=== PATIENT | male | born 1970 | race Caucasian/White ===

== ENCOUNTER 2021-06-22 08:20 | Emergency (ER) | payer SELFPAY ==
[~2021-06-22] VITALS: Ht 172.7 cm; Wt 71.7 kg
== END 2021-06-22 09:46 | disposition home or self-care (01) ==
LOC: ER 08:20
DX: R56.9 Unspecified convulsions (principal); Z79.899 Other long term (current) drug therapy
CPT/HCPCS: 99284

== ENCOUNTER 2025-09-03 16:03 | Inpatient (IN) | payer MEDICAID ==
[~2025-09-03] VITALS: Ht 177.8 cm; Wt 61.7 kg
[2025-09-03] MEDS ORDERED: Midazolam HCL 1 MG/ML 5MLVIAL ONE ×2 (16:17→17:36)
[2025-09-03] MEDS ORDERED: NS 1,000 ML IV SCH (16:20)
[2025-09-03] MEDS ORDERED: Midazolam HCL 1 MG/ML 5MLVIAL IV ONE ×4 (16:20→17:45)
[2025-09-03] MEDS ORDERED: Naloxone HCl 1MG / ML 2ML SYR ONE (16:25)
[2025-09-03] MEDS ORDERED: Naloxone HCl 1MG / ML 2ML SYR IV ONE (16:40)
[2025-09-03 17:02] LABS: BASOPHILS ABSOLUTE AUTO 0.04 K/mm3 (0.00-0.23); BASOPHILS PERCENT AUTO 1 % (0-2); EOSINOPHILS ABSOLUTE AUTO 0.06 K/mm3 (0.00-0.68); EOSINOPHILS PERCENT AUTO 2 % (0-6); Hematocrit 37.0 % (37.0-53.0); Hemoglobin 12.2 g/dL (13.5-17.5); IMMATURE GRAN ABSOLUTE AUTO 0.02 K/mm3 (0.00-0.10); IMMATURE GRAN PERCENT AUTO 1 % (0-1); LYMPHOCYTES ABSOLUTE AUTO 0.35 K/mm3 (0.84-5.20); LYMPHOCYTES PERCENT AUTO 10 % (21-46); MONOCYTES ABSOLUTE AUTO 0.35 K/mm3 (0.16-1.47); MONOCYTES PERCENT AUTO 10 % (4-13); Mean Corpuscular HGB Conc 33.0 g/dL (31.5-36.5); Mean Corpuscular Volume 91 fL (80-100); NEUTROPHILS ABSOLUTE AUTO 2.84 K/mm3 (1.96-9.15); NEUTROPHILS PERCENT AUTO 78 % (41-73); NRBC ABSOLUTE 0.00 K/mm3 (0.00-0.02); NRBC Auto 0.0 /100 WBC (0.0-0.2); RDW Coefficient Variation 20.7 % (11.7-14.2); RDW Standard Deviation 67.6 fL (35.1-46.3)
[2025-09-03 17:21] LABS: Platelet Count 81 K/mm3 (150-400)
[2025-09-03 17:26] LABS: Source, Urine Foley catheter
[2025-09-03 17:31] LABS: Bilirubin, Urine Neg (Neg); Color, Urine Yellow (P-Yellow); Glucose Qualitative, Urine Neg (Neg); Ketones, Urine Neg (Neg); Leukocyte Esterase, Urine Neg (Neg); Protein, Urine 4+ (Neg); Specific Gravity, Urine 1.010 (1.003-1.022); Urobilinogen, Urine NORM (Normal)
[2025-09-03 17:36] LABS: Alanine Aminotransfer (ALT/SGP 58.0 U/L (12-78); Albumin, Blood 3.7 g/dL (3.4-5.0); Albumin/Globulin Ratio 0.9 (0.8-1.8); Anion Gap 6.0 mmol/L (3-11); Aspartate Aminotrans (AST/SGOT 76.0 U/L (12-37); Bilirubin, Total 0.9 mg/dL (0.1-1.0); Blood Urea Nitrogen 13.0 mg/dL (8-24); CO2, Blood 27.0 mmol/L (21-32); Calcium, Blood 9.9 mg/dL (8.5-10.1); Chloride, Blood 106.0 mmol/L (98-108); Creatinine, Blood 0.98 mg/dL (0.60-1.20); Globulin, Blood 3.9 g/dL (2.2-4.0); Glucose, Blood 129.0 mg/dL (70-99); Potassium, Blood 4.2 mmol/L (3.5-5.5); Sodium, Blood 135.0 mmol/L (136-145); Total Protein, Blood 7.6 g/dL (6.4-8.2)
[2025-09-03 17:41] LABS: U Amphetamine Screen Not Detected; U Barbiturate Screen Not Detected; U Benzodiazapine Screen Not Detected; U Buprenorphine Screen Not Detected; U Cannabinoids Screen DETECTED; U Cocaine Screen Not Detected; U Methadone Screen Not Detected; U Methamphetamine Screen Not Detected; U Opiates Screen Not Detected; U Oxycodone Screen Not Detected; U Phencyclidine Screen Not Detected
[2025-09-03 17:45] LABS: White Blood Cells, Urine 0-2 /hpf (0-5)
[2025-09-03 17:53] LABS: Ethanol (Alcohol), Blood, Med <3 mg/dL
[2025-09-03 19:27] LABS: Influenza A, PCR NEGATIVE (NEGATIVE); Influenza B, PCR NEGATIVE (NEGATIVE); Resp Syncytial Virus, PCR NEGATIVE (NEGATIVE); SARS-Cov-2 (COVID-19) PCR, MMC NEGATIVE (NEGATIVE)
[2025-09-03] MEDS ORDERED: LORazepam 2 MG/ML 1ML Injection ONE (20:34)
[2025-09-03] MEDS ORDERED: LORazepam 2 MG/ML 1ML Injection IV PRN ×2 (20:40)
[2025-09-03] MEDS ORDERED: Metoclopramide HCl 5MG / ML 2ML Vial IV PRN (20:40)
[2025-09-03] MEDS ORDERED: Labetalol HCL 5 MG/ML 4ML Injection (Single Dose) IV PRN (20:40)
[2025-09-03] MEDS ORDERED: FLU VACC TS2025-26(6MOS UP)/PF 45 MCG/0.5 ML SYRINGE IM SCH (20:40)
[2025-09-03] MEDS ORDERED: Ondansetron HCl 2 MG / ML 2ML Vial IV PRN (20:40)
[2025-09-03] MEDS ORDERED: D5W-1/2NS KCl 20mEq 1,000 ML IV SCH (20:40)
[2025-09-03] MEDS ORDERED: LORazepam 2 MG/ML 1ML Injection IV ONE (21:00)
[2025-09-03 21:18] LABS: Magnesium, Blood 1.7 mg/dL (1.6-2.4); Thyroid Stimulating Hormone 4.270 uIU/mL (0.360-4.800)
[2025-09-03 22:30] VITALS: BP 118/78
[2025-09-03 23:30] VITALS: BP 152/99
[2025-09-03 23:45] VITALS: BP 154/90
[2025-09-04] VITALS (61 sets, daily range): BP systolic 82–168; BP diastolic 51–104
[2025-09-04 04:22] LABS: BASOPHILS ABSOLUTE AUTO 0.04 K/mm3 (0.00-0.23); BASOPHILS PERCENT AUTO 1 % (0-2); EOSINOPHILS ABSOLUTE AUTO 0.03 K/mm3 (0.00-0.68); EOSINOPHILS PERCENT AUTO 1 % (0-6); Hematocrit 34.1 % (37.0-53.0); Hemoglobin 11.0 g/dL (13.5-17.5); IMMATURE GRAN ABSOLUTE AUTO 0.03 K/mm3 (0.00-0.10); IMMATURE GRAN PERCENT AUTO 1 % (0-1); LYMPHOCYTES ABSOLUTE AUTO 0.59 K/mm3 (0.84-5.20); LYMPHOCYTES PERCENT AUTO 10 % (21-46); MONOCYTES ABSOLUTE AUTO 1.23 K/mm3 (0.16-1.47); MONOCYTES PERCENT AUTO 20 % (4-13); Mean Corpuscular HGB Conc 32.3 g/dL (31.5-36.5); Mean Corpuscular Volume 91 fL (80-100); NEUTROPHILS ABSOLUTE AUTO 4.26 K/mm3 (1.96-9.15); NEUTROPHILS PERCENT AUTO 69 % (41-73); NRBC ABSOLUTE 0.00 K/mm3 (0.00-0.02); NRBC Auto 0.0 /100 WBC (0.0-0.2); Platelet Count 79 K/mm3 (150-400); RDW Coefficient Variation 20.2 % (11.7-14.2); RDW Standard Deviation 67.3 fL (35.1-46.3)
[2025-09-04 04:45] LABS: Alanine Aminotransfer (ALT/SGP 47.0 U/L (12-78); Albumin, Blood 3.3 g/dL (3.4-5.0); Albumin/Globulin Ratio 1.0 (0.8-1.8); Anion Gap 7.0 mmol/L (3-11); Aspartate Aminotrans (AST/SGOT 59.0 U/L (12-37); Bilirubin, Total 0.9 mg/dL (0.1-1.0); Blood Urea Nitrogen 13.0 mg/dL (8-24); CO2, Blood 28.0 mmol/L (21-32); Calcium, Blood 8.7 mg/dL (8.5-10.1); Chloride, Blood 107.0 mmol/L (98-108); Creatinine, Blood 0.94 mg/dL (0.60-1.20); Globulin, Blood 3.4 g/dL (2.2-4.0); Glucose, Blood 135.0 mg/dL (70-99); Magnesium, Blood 1.6 mg/dL (1.6-2.4); Potassium, Blood 3.9 mmol/L (3.5-5.5); Sodium, Blood 138.0 mmol/L (136-145); Total Protein, Blood 6.7 g/dL (6.4-8.2)
--- NOTE | 2025-09-04 06:17 | NUR ---
SHIFT SUMMARY RECEIVED PT FROM ED LAST NIGHT @ 225, EXTREMELY AGITATED AND CONFUSED WITH CIWA 25 ON ARRIVAL AFTER TRANSFERRING TO ICU BED. MULT DOSES OF ATIVAN NEEDED TO LOWER CIWA, DR CHRISTOPHER UPDATED WITH PT STATUS, PRECEDEX GTT ORDER RECEIVED AND INITIATED. TITRATING PER PROTOCOL, CURRENTLY AT 0.4 WITH MIN SYMPTOMS NOTED. FEBRILE AT 100.0 EARLY IN SHIFT, DOWN TO 98.9 BY THIS AM. OTHER VS REMAINED STABLE T/O SHIFT. WILL UPDATE DAY RN WITH ANY OUTSTANDING ISSUES AND PROBLEMS TO DATE.
[2025-09-04] MEDS ORDERED: ALLO100 PO (10:16)
[2025-09-04] MEDS ORDERED: FOLI1 PO (10:16)
[2025-09-04] MEDS ORDERED: PANT40 PO (10:16)
[2025-09-04] MEDS ORDERED: MULVITA PO (10:17)
[2025-09-04] MEDS ORDERED: Naltrexone HCl50 MG PO (10:17)
[2025-09-04] MEDS ORDERED: VITAMIN D5000 UNIT PO (10:18)
[2025-09-04] MEDS ORDERED: ELEPSIA XR1500 MG PO (10:19)
[2025-09-04] MEDS ORDERED: SPIR50 PO (10:20)
[2025-09-04] MEDS ORDERED: TAMSULOSIN HCL0.4 MG PO (10:21)
--- NOTE | 2025-09-04 13:26 | NUR ---
ASSUMPTION OF CARE ASSUMED CARE OF PT APPROX 0700. PT IS RESTING IN BED, PT IS AROUSABLE TO VOICE AND TOUCH, NOT ORIENTED TO DATE, STATES "IT'S SUNDAY" BUT CANNOT IDENTIFY MONTH OR YEAR. WHEN AWAKENED WILL LIFT ARMS AND LEGS AND PULL AT LINES, ABLE TO REDIRECT. PT PRODUCTION TECHNICIAN IS AT BEDSIDE. PRECEDEX INFUSING PER MAR -SEE FLOWSHEET. REMAINS IN SINUS RHYTHM ON MONITOR, BP STABLE WITH MAP >65, SP02 REMAINS >90% ON 2L NC. FANG IN PLACE AND DRAINING TO GRAVITY. NO UNMET NEEDS AT THIS TIME, CALL LIGHT WITHIN REACH.
[2025-09-04 13:36] LABS: Prothrombin Time Results 12.7 Sec (9.7-11.5)
[2025-09-04 14:59] LABS: Ferritin, Serum 34.0 ng/mL (26-388); Total Iron Binding Capacity 366.0 ug/dL (250-450)
--- NOTE | 2025-09-04 18:43 | NUR ---
SHIFT SUMMARY PT REMAINS DROWSY AND ORIENTED TO SELF AND PLACE, NOT ORIENTED TO TIME. CIWA THROUGHOUT THE SHIFT RANGED 13-19. PRECEDEX INFUSING PER MAR -SEE FLOWSHEET. PT RESTING DURING MOST OF SHIFT, WHEN STIMULATED BECOMES AGITATED, LIFTING ARMS AND LEGS, PULLING AT LINES. BP REMAINS STABLE WITH MAP >65, RHYTHM IS SINUS WITH RATE IN THE 70S-80S AND SATS REMAIN >90% ON 2L NC. CALL LIGHT WITHIN REACH.
[2025-09-05] VITALS (92 sets, daily range): BP systolic 72–178; BP diastolic 40–105
[2025-09-05 04:28] LABS: BASOPHILS ABSOLUTE AUTO 0.06 K/mm3 (0.00-0.23); BASOPHILS PERCENT AUTO 1 % (0-2); EOSINOPHILS ABSOLUTE AUTO 0.02 K/mm3 (0.00-0.68); EOSINOPHILS PERCENT AUTO 0 % (0-6); Hematocrit 31.9 % (37.0-53.0); Hemoglobin 10.5 g/dL (13.5-17.5); IMMATURE GRAN ABSOLUTE AUTO 0.06 K/mm3 (0.00-0.10); IMMATURE GRAN PERCENT AUTO 1 % (0-1); LYMPHOCYTES ABSOLUTE AUTO 1.02 K/mm3 (0.84-5.20); LYMPHOCYTES PERCENT AUTO 8 % (21-46); MONOCYTES ABSOLUTE AUTO 1.72 K/mm3 (0.16-1.47); MONOCYTES PERCENT AUTO 13 % (4-13); Mean Corpuscular HGB Conc 32.9 g/dL (31.5-36.5); Mean Corpuscular Volume 91 fL (80-100); NEUTROPHILS ABSOLUTE AUTO 10.05 K/mm3 (1.96-9.15); NEUTROPHILS PERCENT AUTO 78 % (41-73); NRBC ABSOLUTE 0.00 K/mm3 (0.00-0.02); NRBC Auto 0.0 /100 WBC (0.0-0.2); Platelet Count 65 K/mm3 (150-400); RDW Coefficient Variation 20.3 % (11.7-14.2); RDW Standard Deviation 67.3 fL (35.1-46.3)
[2025-09-05 04:52] LABS: Alanine Aminotransfer (ALT/SGP 34.0 U/L (12-78); Albumin, Blood 2.6 g/dL (3.4-5.0); Albumin/Globulin Ratio 0.8 (0.8-1.8); Anion Gap 6.0 mmol/L (3-11); Aspartate Aminotrans (AST/SGOT 39.0 U/L (12-37); Bilirubin, Total 1.0 mg/dL (0.1-1.0); Blood Urea Nitrogen 18.0 mg/dL (8-24); CO2, Blood 24.0 mmol/L (21-32); Calcium, Blood 8.0 mg/dL (8.5-10.1); Chloride, Blood 112.0 mmol/L (98-108); Creatinine, Blood 0.96 mg/dL (0.60-1.20); Globulin, Blood 3.1 g/dL (2.2-4.0); Glucose, Blood 117.0 mg/dL (70-99); Magnesium, Blood 1.3 mg/dL (1.6-2.4); Potassium, Blood 4.1 mmol/L (3.5-5.5); Sodium, Blood 138.0 mmol/L (136-145); Total Protein, Blood 5.7 g/dL (6.4-8.2)
--- NOTE | 2025-09-05 05:12 | NUR ---
DR MAMI GUILLERMO AWARE OF PT AM LABS. ORDER PLACED FOR REPLACEMENT IV MAGNESIUM.
[2025-09-05] MEDS ORDERED: Mag Sulfate 1 GM/D5% 100ML 100 ML IV ONE (05:15)
[2025-09-05] MEDS ORDERED: Pantoprazole Sodium 40 MG Injection IV SCH (06:00)
--- NOTE | 2025-09-05 06:05 | NUR ---
SHIFT SUMMARY PT A&O x2, TO SELF/PLACE. CIWA RANGED FROM 14-26 THROUGHOUT THE NIGHT, MEDICATED PER EMAR c ATIVAN. PT INCREASINGLY AGGITATED WHEN WOKEN, CONSISTENTLY PULLS AT LINES. SITTER INTERMITTENTLY ABLE TO REDIRECT PT. SPO2 >93% ON 2L O2 VIA NC. NSR, HR 70-80s, MAP >65. IV FLUIDS INFUSING PER EMAR. PRECEDEX CURRENTLY INFUSING @ 0.3. TEMPERATURE TRENDING DOWN. FANG DRAINING YELLOW URINE TO GRAVITY. SITTER AT BEDSIDE. WILL REPORT TO DAY RN.
[2025-09-05] MEDS ORDERED: Magnesium Sulf 2 GM/Water 50ML 50 ML IV ONE (07:20)
[2025-09-05] MEDS ORDERED: Multivitamins 1 Tab PO SCH (09:00)
[2025-09-05] MEDS ORDERED: Cholecalciferol 1000 Unit Tablet (=25MCG) PO SCH (09:00)
[2025-09-05] MEDS ORDERED: D5W-1/2NS KCl 20mEq 1,000 ML IV SCH (14:15)
[2025-09-05] MEDS ORDERED: Lactulose 200 GM/300 ML Enema 300ML BTL PR ONE (14:20)
[2025-09-05] MEDS ORDERED: CefTRIAXone Sodium 2,000 MG in NS 100 ML IV SCH (16:00)
--- NOTE | 2025-09-05 19:07 | NUR ---
SHIFT SUMMARY: NEURO: PATIENT CONFUSED THROUGHOUT THE SHIFT. PATIENT ABLE TO RESPOND TO HIS NAME, BUT REPORTED THAT HE WAS IN [place]. COULD NOT REMEMBER CURRENT CITY THIS MORNING OR THE CITY THAT HE CURRENTLY LIVES IN. THE DAY PROGRESSED, PATIENT EXPERIENCED AN IMPROVEMENT IN HIS MENTATION. ABLE TO ASK THIS RN "HOW ARE YOU" AND STATE THAT HE LIVES IN [place]. PATIENT DID NOT FOLLOW DIRECTIONS. DIFFICULT TO REDIRECT THE PATIENT. WITH CARE, PATIENT AGITATED AND PULLING AT LINES. TREMOR NOTED. PATIENT ABLE TO ANSWER SOME OF THE CIWA QUESTIONS (HEADACHE, NAUSEA, ANXIETY). MEDICATED FOR WITHDRAWAL PER PRN ORDERS. MOVEMENT NOTED IN ALL 4 EXTREMITIES. PRECEDEX GTT CONTINUED. CARDIAC: PATIENT HR IN THE 70S THROUGHOUT THE SHIFT. SBP IN THE 90S-120S. BLOOD PRESSURES SOFT AT TIMES. MAPS >65. DR. WALSH AWARE. RESPIRATORY: TITRATED O2 VIA NC TO 2L. SPO2 >98%. PATIENT HAS A PRODUCTIVE COUGH. PATIENT SWALLOS SPUTUM BEFORE IT CAN BE VISUALIZED. NO SHORTNESS OF BREATH OR DIFFICULTY BREATHING NOTED. GI/: LARGE CAST REMOVED FROM BACK OF ROOF OF MOUTH TODAY. DENTURES CLEANED AND SOAKING IN DENTURE CLEANSER. ORAL CARE PROVIDED THROUGHOUT THE SHIFT. IN GENERAL, PATIENT NOT AWAKE ENOUGH TO SAFELY TAKE IN PO INTAKE. ALERT ENOUGH TO SAFELY SWALLOW SOME WATER THIS AFTERNOON. FANG IN PLACE AND DRAINING FREELY. LACTULOSE ENEMA GIVEN TO THE PATIENT. TWO LARGE BOWEL MOVEMENTS POST ADMINISTRATION. PSYCHSOCIAL: PATIENT SLEPT MOST OF THE SHIFT. OCCASIONALLY PULLING AT LINES, MOSTLY WHEN UNCOVERED. PATIENT AGITATED AND FIGHTING CARE. NO VIOLENT ACTIONS TOWARDS STAFF.
--- NOTE | 2025-09-05 20:15 | NUR ---
ASSUMPTION OF CARE: ASSUMED CARE OF PT AT 1900 PT IS DOING ADL'S-ORAL CARE IND AT THE SINK AND PT'S FATHER AT BEDSIDE. PT IS ON RA AND SPO2 >96%. SBP 150'S AND HR IN 70'S.PATENT FANG DRAINING YELLOW URINE TO GRAVITY. LAC AND RAC PATENT. PT REPORTS WANTING TO GO BACK TO BED AND PAIN EVERYWHERE, PAIN MEDICATED PER EMAR. PT A&OX4 AND ABLE TO FOLLOW COMMANDS. 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 LIFT USED TO AMBULATE PT WITH 3 STAFF MEMBERS. PT HAS CALL LIGHT IN REACH AND CALLS TO MAKE NEEDS KNOWN WITH BED LOW AND LOCKED FOR SAFETY.
--- NOTE | 2025-09-05 20:26 | NUR ---
ASSUMPTION OF CARE: ASSUMED CARE OF PT AT 1900. PT HAS A 1:1 SITTER AT BEDSIDE AND CURRENTLY ASLEEP AND AROUSABLE TO STIMULI BUT DOES NOT RESPOND TO QUESTIONS OR FOLLOW COMMANDS AT THIS TIME. PT IS ORIENTED TO SELF. PRECEDEX INFUSING 0.25 MCG/KG/HR, RASS -3. CURRENTLY ON 2L NC AND SPO2 >96%. SBP 100'S AND HR IN 70'S. PATENT TEMP FANG DRAING YELLOW URINE TO GRAVIY AND T-MAX: 100.4. PATENT NAGI PG AND L PIV. BED LOW AND LOCKED FOR SAFETY AND SITTER AT BEDSIDE.
--- NOTE | 2025-09-05 22:31 | NUR ---
HOSPITALIST CALLED DUE TO PT'S RISING FEVER T MAX 100.8. HOSPITALIST THINKS ITS DUE TO ALCOHOL WITHDRAWL AND HAS NO RECOMMENDATIONS AT THIS TIME EXCEPT TO REPORT IF FEVER INCREASES.
[2025-09-06] VITALS (61 sets, daily range): BP systolic 101–168; BP diastolic 67–109
[2025-09-06 03:27] LABS: BASOPHILS ABSOLUTE AUTO 0.03 K/mm3 (0.00-0.23); BASOPHILS PERCENT AUTO 0 % (0-2); EOSINOPHILS ABSOLUTE AUTO 0.26 K/mm3 (0.00-0.68); EOSINOPHILS PERCENT AUTO 3 % (0-6); Hematocrit 30.4 % (37.0-53.0); Hemoglobin 10.0 g/dL (13.5-17.5); IMMATURE GRAN ABSOLUTE AUTO 0.03 K/mm3 (0.00-0.10); IMMATURE GRAN PERCENT AUTO 0 % (0-1); LYMPHOCYTES ABSOLUTE AUTO 0.75 K/mm3 (0.84-5.20); LYMPHOCYTES PERCENT AUTO 8 % (21-46); MONOCYTES ABSOLUTE AUTO 0.98 K/mm3 (0.16-1.47); MONOCYTES PERCENT AUTO 10 % (4-13); Mean Corpuscular HGB Conc 32.9 g/dL (31.5-36.5); Mean Corpuscular Volume 91 fL (80-100); NEUTROPHILS ABSOLUTE AUTO 7.69 K/mm3 (1.96-9.15); NEUTROPHILS PERCENT AUTO 79 % (41-73); NRBC ABSOLUTE 0.00 K/mm3 (0.00-0.02); NRBC Auto 0.0 /100 WBC (0.0-0.2); Platelet Count 75 K/mm3 (150-400); RDW Coefficient Variation 20.3 % (11.7-14.2); RDW Standard Deviation 66.9 fL (35.1-46.3)
[2025-09-06 03:40] LABS: Anion Gap 7.0 mmol/L (3-11); Blood Urea Nitrogen 14.0 mg/dL (8-24); CO2, Blood 22.0 mmol/L (21-32); Calcium, Blood 7.6 mg/dL (8.5-10.1); Chloride, Blood 116.0 mmol/L (98-108); Creatinine, Blood 0.89 mg/dL (0.60-1.20); Glucose, Blood 108.0 mg/dL (70-99); Potassium, Blood 3.8 mmol/L (3.5-5.5); Sodium, Blood 141.0 mmol/L (136-145)
--- NOTE | 2025-09-06 05:35 | NUR ---
SHIFT SUMM: PT REMAINS ON PRECEDEX (SEE FLOW SHEET FOR TITRATIONS). SBP 100-120'S HR 60-70'S. SPO2 >98% ON 2L NC. PATENT FANG TEMP AND T-MAX: 100.8 THIS SHIFT BUT NOW MONITOR READS 98.7. PT REMAINS A&O TO SELF ONLY AND IS UNABLE TO FOLLOW COMMANDS. PATENT NAGI PG AND LAC PIV. PT RECIEVED PRN ATIVAN THIS SHIFT TO HELP WITH AGITATION AND RESTLESSNESS. PT HAS BED LOW AND LOCKED FOR SAFETY.
[2025-09-06] MEDS ORDERED: Lactobacil 2-S.Thermo-Bifido 1 1 Cap PO SCH (09:00)
--- NOTE | 2025-09-06 09:57 | NUR ---
ASSUMPTION OF CARE ASSUMED CARE OF PT APPROX. 0700. PT REMAINS ORIENTED ONLY TO SELF, BP STABLE WITH MAP >65, SINUS RHYTHM ON MONITOR WITH RATE IN THE 60S, SATS REMAIN >90% ON 2L NC. PT IS AFEBRILE AT THIS TIME. PRECEDEX INFUSING PER MAR -SEE FLOWSHEET. TEMP FANG IN PLACE AND DRAINING TO GRAVITY. CALL LIGHT WITHIN REACH.
--- NOTE | 2025-09-06 18:29 | NUR ---
SHIFT SUMMARY PT BECAME MORE ALERT APPROX 1530 AND REMAINS ORIENTED TO SELF AND SITUATION, NOT TO LOCATION OR DATE. STATES THAT HE IS IN A HOSPITAL BUT IN ANCHORAGE. PT IS AWAKE AND FOLLOWING COMMANDS AND ANSWERING QUESTIONS APPROPRIATELY, ABLE TO GET SOME PO INTAKE WITH DINNER AND FLUIDS THIS SHIFT. PRECEDEX GTT OFF AT APPROX 1700 AND D5 1/2NS WITH 20 MEQ POTASSIUM INFUSING AT 75ML/HR, PT REMAINS CALM AND COOPERATIVE. BP REMAINS STABLE WITH MAP >65, SPO2 >92% ON 2L NC. SINUS RHYTHM ON MONITOR WITH RATE IN THE 60S-70S. TEMP FANG IN PLACE AND DRAINING TO GRAVITY. TMAX TEMP 100.1 THIS SHIFT. LAST CIWA WAS 12 AT 1755. PT WAS BATHED AND NEW LINEN/GOWN PROVIDED TODAY. DENIES UNMET NEEDS AT THIS TIME, RESTING WITH CALL LIGHT WITHIN REACH.
--- NOTE | 2025-09-06 19:41 | NUR ---
ASSUMPTION OF CARE: ASSUMED CARE OF PT AT 1900 AND PT IS RELAXING IN BED AND HAS D-5 INFUSING AT 75ML/HR AND PRECEDEX CURRENTLY OFF. PT HAS PATENT NAGI PG AND LAC PIV. PATENT TEMP FANG DRAINING TO GRAVITY. PT IS ALERT AND ORIENTED TO SELF. PT BELIEVES HE IS IN [facility]. PT WAS ABLE TO TOLERATE SOME JELLO WITH MY HELP. SBP'S 140'S AND HR 70'S. PT SPO2 >97% ON RA. PT HAS CALL LIGHT IN REACH AND BED ALARM SET WITH BED LOW AND LOCKED.
--- NOTE | 2025-09-06 23:47 | NUR ---
PRECEDEX WAS RESTARTED AT 2335 AND TITRATED UP TO 0.8MCG/KG/HR DO TO RESTLESS PT WHO IS UNDIRECTABLE EVEN AFTER PRN MEDICATION TO HELP PT SLEEP (SEE EMAR). PT ATTEMPTS TO GET OUT OF BED MULTIPLE TIMES REGARDLESS OF BED ALARM AND PATIENT WAS STANDING OUT OF BED AND STARTING TO PULL AT SOME LINES SUCH PIV AND FANG.
[2025-09-07] VITALS (53 sets, daily range): BP systolic 105–201; BP diastolic 62–112
--- NOTE | 2025-09-07 00:29 | NUR ---
HOSPITALIST CALLED AT 0015 TO SEE IF PATIENT COULD RECIEVE SOMETHING ELSE TO HELP HIM SLEEP. DR ORDERED 5MG MELATONIN AND 50MG OF SEROQUIL.PT IS CURRENTLY AT 1MCG/KG/HR OF PRECEDEX.
[2025-09-07 03:44] LABS: BASOPHILS ABSOLUTE AUTO 0.03 K/mm3 (0.00-0.23); BASOPHILS PERCENT AUTO 0 % (0-2); EOSINOPHILS ABSOLUTE AUTO 0.32 K/mm3 (0.00-0.68); EOSINOPHILS PERCENT AUTO 4 % (0-6); Hematocrit 30.0 % (37.0-53.0); Hemoglobin 10.0 g/dL (13.5-17.5); IMMATURE GRAN ABSOLUTE AUTO 0.04 K/mm3 (0.00-0.10); IMMATURE GRAN PERCENT AUTO 1 % (0-1); LYMPHOCYTES ABSOLUTE AUTO 1.06 K/mm3 (0.84-5.20); LYMPHOCYTES PERCENT AUTO 13 % (21-46); MONOCYTES ABSOLUTE AUTO 0.95 K/mm3 (0.16-1.47); MONOCYTES PERCENT AUTO 11 % (4-13); Mean Corpuscular HGB Conc 33.3 g/dL (31.5-36.5); Mean Corpuscular Volume 89 fL (80-100); NEUTROPHILS ABSOLUTE AUTO 5.90 K/mm3 (1.96-9.15); NEUTROPHILS PERCENT AUTO 71 % (41-73); NRBC ABSOLUTE 0.00 K/mm3 (0.00-0.02); NRBC Auto 0.0 /100 WBC (0.0-0.2); Platelet Count 80 K/mm3 (150-400); RDW Coefficient Variation 19.6 % (11.7-14.2); RDW Standard Deviation 63.4 fL (35.1-46.3)
[2025-09-07 04:03] LABS: Alanine Aminotransfer (ALT/SGP 38.0 U/L (12-78); Albumin, Blood 2.3 g/dL (3.4-5.0); Albumin/Globulin Ratio 0.7 (0.8-1.8); Anion Gap 7.0 mmol/L (3-11); Aspartate Aminotrans (AST/SGOT 68.0 U/L (12-37); Bilirubin, Total 1.0 mg/dL (0.1-1.0); Blood Urea Nitrogen 11.0 mg/dL (8-24); CO2, Blood 23.0 mmol/L (21-32); Calcium, Blood 7.8 mg/dL (8.5-10.1); Chloride, Blood 112.0 mmol/L (98-108); Creatinine, Blood 0.86 mg/dL (0.60-1.20); Globulin, Blood 3.2 g/dL (2.2-4.0); Glucose, Blood 109.0 mg/dL (70-99); Potassium, Blood 3.7 mmol/L (3.5-5.5); Sodium, Blood 138.0 mmol/L (136-145); Total Protein, Blood 5.5 g/dL (6.4-8.2)
--- NOTE | 2025-09-07 05:55 | NUR ---
SHIFT SUMMARY: PT REMAINS ON PRECEDEX (SEE FLOWSHEET). PT HAD A HARD TIME GETTING SLEEP THIS SHIFT AND WAS MEDICATED PER EMAR (SEE NOTES). NAGI NG REMAINS PATENT. SANDRA FANG REMAINS PATENT. SBP 120'S HR IN 60'S NSR. SPO2 MAINTAINS >96% ON RA. BED ALARM SET AND PT TRIED TO GET OUT OF BED MULTIPLE TIMES THIS SHIFT AND IS STILL WEAK AND ORIENTED TO SELF ONLY. PT TOLERATED SOME JELLO THIS SHIFT AND SOME SIPS OF WATER. PT HAS CALL LIGHT IN REACH AND BED LOW AND LOCKED FOR SAFETY.
--- NOTE | 2025-09-07 09:07 | NUR ---
ASSUMPTION OF CARE ASSUMED CARE OF PATIENT AT APPROX 0700. PATIENT PLEASANTLY CONFUSED, BUT ALERT AND ORIENTED TO SELF AND ABLE TO COMMUNICATE NEEDS. PATIENT FREQUENTLY TRIES TO GET OUT OF BED, BUT IS EASILY REDIRECTED. HR SINUS IN THE 70S-80S. BP STABLE WITH MAPS >65. PATIENT ON RA WITH SPO2 >94%. FANG PATENT AND DRAINING YELLOW URINE TO GRAVITY. LAST BM 09/06 PER WICK AND BASE ASSEMBLER RN. CALL LIGHT NEAR. BED ALARM ON.
[2025-09-07 11:02] LABS: HEPATITIS A ANTIBODY, IGM Negative (Negative); HEPATITIS C AB CIA INTERP High Pos (Negative); HEPATITIS C ANTIBODY CIA INDEX >11.00 IV
[2025-09-07] MEDS ORDERED: CefTRIAXone Sodium 1,000 MG in NS 100 ML IV SCH (12:00)
[2025-09-07] MEDS ORDERED: Petrolatum/Mineral Oil/Lanolin 1 APPLIC/50 GM Tube TOP SCH (14:00)
--- NOTE | 2025-09-07 16:59 | NUR ---
SHIFT SUMMARY PATIENT ALERT AND ORIENTED TO SELF. PATIENT CONFUSED ABOUT WHERE HE IS AT AND DOESNT KNOW THE DATE OR WHY HE IS HERE. PATIENT IS EASILY REDIRECTED, BUT TIRES TO GET UP OUT OF THE CHAIR/BED OFTEN AND HAS HAD AN RN SITTING CLOSE BY THROUGHOUT THE SHIFT. BED/CHAIR ALARM ON. PATIENT MEDICATED WITH LIBRIUM PER EMAR. HR SINUS IN THE 70S-90S. BP STABLE WITH MAPS >65. PATIENT ON RA WITH SPO2 >94%. PATIENT UP WITH ONE ASSIST TO USE URINAL AND BSC. NO BM THIS SHIFT. POWERGLIDE TO RIGHT UA SALINE LOCKED. PATIENT WAS CONSERNED ABOUT FLIGHT HOME TOMORROW. THIS RN CALLED , ROSALEE, AND SHE CANCELED THE FLIGHT AND WILL RESCHEDULE IT WHEN THE PATIENT IS WELL. FAMILY UPDATED ON PLAN OF CARE. CALL LIGHT NEAR.
--- NOTE | 2025-09-07 18:42 | NUR ---
BAG OF DIRTY CLOTHES TAKEN HOME BY SISTER AND BROTHER. CLEAN CLOTHES IN BAG FOR DISCHARGE. PT HAS WALKED AROUND THE UNIT WITH THE WALKER, DID WELL. CONTINUES TO BE INTERMITTENTLY CONFUSED AND DISORIENTED. HE CAN BE RE-DIRECTED.
--- NOTE | 2025-09-07 20:03 | NUR ---
ASSUMED CARE AT APPROX 1900 PATIENT IS ALERT AND ORIENTED TO SELF AND SOMETIMES PLACE, AT TIMES HE THINKS HE IS IN [place]. FORGETFUL BUT ABLE TO REDIRECT. SITTER AT BEDSIDE. CIWA OF 8. SP02 100% ON RA, DENIES SOB. HR SR 90s, BP STABLE. DENIES CP/PRESSURE. SBA WITH GAIT BELT WHEN UP. PATIENT CURRENTLY IN RECLINER. DENIES PAIN. CALL LIGHT IN REACH
[2025-09-08 00:27] VITALS: BP 158/97
--- NOTE | 2025-09-08 00:31 | NUR ---
PATIENT TRANSFERED TO ROOM 327, WITH SITTER. CALLED SISTER AND UPDATED HER ON PATIENTS ROOM CHANGE
[2025-09-08 03:35] VITALS: BP 156/96
--- NOTE | 2025-09-08 04:27 | NUR ---
SHIFT SUMMARY: PT IS AO TO SELF AND VERY IMPULSIVE. PT REPEATEDLY ATTEMPTS TO EXIT BED WITHOUT ASSISTANCE AND NEEDS REPEATED REORIENTATION. SITTER AT BEDSIDE. BED ALARM IS ON. CALL LIGHT IS WITHIN REACH. BED IS LOW AND LOCKED.
[2025-09-08 05:40] LABS: BASOPHILS ABSOLUTE AUTO 0.03 K/mm3 (0.00-0.23); BASOPHILS PERCENT AUTO 0 % (0-2); EOSINOPHILS ABSOLUTE AUTO 0.21 K/mm3 (0.00-0.68); EOSINOPHILS PERCENT AUTO 3 % (0-6); Hematocrit 28.6 % (37.0-53.0); Hemoglobin 9.7 g/dL (13.5-17.5); IMMATURE GRAN ABSOLUTE AUTO 0.04 K/mm3 (0.00-0.10); IMMATURE GRAN PERCENT AUTO 1 % (0-1); LYMPHOCYTES ABSOLUTE AUTO 0.97 K/mm3 (0.84-5.20); LYMPHOCYTES PERCENT AUTO 12 % (21-46); MONOCYTES ABSOLUTE AUTO 1.25 K/mm3 (0.16-1.47); MONOCYTES PERCENT AUTO 16 % (4-13); Mean Corpuscular HGB Conc 33.9 g/dL (31.5-36.5); Mean Corpuscular Volume 87 fL (80-100); NEUTROPHILS ABSOLUTE AUTO 5.48 K/mm3 (1.96-9.15); NEUTROPHILS PERCENT AUTO 69 % (41-73); NRBC ABSOLUTE 0.00 K/mm3 (0.00-0.02); NRBC Auto 0.0 /100 WBC (0.0-0.2); Platelet Count 100 K/mm3 (150-400); RDW Coefficient Variation 19.2 % (11.7-14.2); RDW Standard Deviation 60.4 fL (35.1-46.3)
[2025-09-08 05:58] LABS: Anion Gap 12.0 mmol/L (3-11); Blood Urea Nitrogen 10.0 mg/dL (8-24); CO2, Blood 19.0 mmol/L (21-32); Calcium, Blood 8.5 mg/dL (8.5-10.1); Chloride, Blood 109.0 mmol/L (98-108); Creatinine, Blood 0.81 mg/dL (0.60-1.20); Glucose, Blood 93.0 mg/dL (70-99); Potassium, Blood 3.1 mmol/L (3.5-5.5); Sodium, Blood 137.0 mmol/L (136-145)
[2025-09-08 07:49] VITALS: BP 143/84
[2025-09-08] MEDS ORDERED: NS 250 ML IV PRN (10:40)
--- NOTE | 2025-09-08 13:58 | NUR ---
NOTE PT CONTIMUES TO BE UP. BUSY IN ROOM. PACKING/UNPACKING...TALKED TO [facility]. HE CALLED HIS BROTHER VOLODYMYR. DISCHARGE MED REC FAXED TO [facility] PER PT REQUEST FOR DISCHARGE TOMORROW DISCUSSED WITH DR SIMPSON. CARE ONGOING.
--- NOTE | 2025-09-08 14:21 | NUR ---
VIRTUAL HYDROMETEOROLOGY TEACHER TELEPHONE SET UP COMPLETED WITH VIRTUAL HYDROMETEOROLOGY TEACHER. HYDROMETEOROLOGY TEACHER EXPLAINED TO PT. CARE ONGOING.
[2025-09-08 15:23] VITALS: BP 136/95
--- NOTE | 2025-09-08 18:11 | NUR ---
NOTE PT ALERT, SITTING IN CHAIR IN THE DOORWAY. VISITING PLEASANTLY WITH STAFF. VIRTUAL TRACER BULLET SECTION SUPERVISOR IN ATTENDANCE. VSS. TALKED WITH FAMILY. BROTHER IS COMING TONIGHT. REDIRECTS EASILY. LIBRIUM GIVEN. ATIVAN GIVEN THIS MORNING EFFECTIVE. CIWA 5-7. CARE ONGOING.
--- NOTE | 2025-09-08 18:36 | NUR ---
FAMILY CALLED AND TALKED WITH PT SISTER IN LAW. THEY ARE COMING TO SEE HIM TERA. PT DISCAHRGE MED REC HAS BEEN FAXED TO [facility] REQUESTED BY PT. FAMILY INFORMED THAT PT DISCAHRGE PERWSCSRIPTIONS ARE AT [facility]. CARE ONGOING.
--- NOTE | 2025-09-08 19:32 | NUR ---
DISCHARGE AMA PT FAMILY ARRIVED. HIS BROTHER WAS FINE WITH TAKING HIM HOME TO PT FATHER. MEDCIATION ORDERS FAXED TO [facility]. PT AGREED TO AMA FORM AND SIGNED. PT ESCORTED VIA W/C OUT TO THE CARE. TALKED WITH FAMILY ABOUT ANTIBIOTICS AMD KEPRA. POWER GLIDE REMOVED AND IV REMOVED PRESSURE DRESSINGS APPLIED. CARE ONGOING.
[2025-09-09 01:54] LABS: HCV QNT BY NAAT (IU/ML) Not Detected; HCV QNT BY NAAT (LOG IU/ML) Not Detected; HCV QNT BY NAAT INTERP Not Detected (Not Detected)
== END 2025-09-08 19:17 | disposition left against medical advice (07) | DRG 894 ==
LOC: ER 16:03 → ICUE 20:36 → MEDS 09-08 01:27
PROVIDERS: Emergency Medicine; Nurse Practitioner Acute Care; Student in an Organized Health Care Education/Training Program; ADMIT Student in an Organized Health Care Education/Training Program
PROC: 0T9B70Z Drainage of Bladder with Drainage Device, Via Natural or Artificial Opening (ICD-10-PCS; principal; 2025-09-03)
DX: F10.231 Alcohol dependence with withdrawal delirium (principal); G92.8 Other toxic encephalopathy; J18.9 Pneumonia, unspecified organism; D61.818 Other pancytopenia; E72.20 Disorder of urea cycle metabolism, unspecified; F10.221 Alcohol dependence with intoxication delirium; G40.909 Epilepsy, unspecified, not intractable, without status epilepticus; R45.1 Restlessness and agitation; I16.0 Hypertensive urgency; K70.30 Alcoholic cirrhosis of liver without ascites; T40.715A Adverse effect of cannabis, initial encounter; R73.9 Hyperglycemia, unspecified; N40.0 Benign prostatic hyperplasia without lower urinary tract symptoms; K21.9 Gastro-esophageal reflux disease without esophagitis; D72.829 Elevated white blood cell count, unspecified; Z87.19 Personal history of other diseases of the digestive system
CPT/HCPCS: 36415; 51702; 70450; 71045; 76705; 80048; 80053; 80074; 80320; 81001; 82140; 82550; 82728; 82947; 83540; 83550; 83605; 83690; 83735; 84443; 85025; 85610; 87522; 87637; 93005; 93010; 94760; 94762; 96365-59; 96375-59; 96376-59; 97110; 97161; 97530; 99285-25; A9270; C1751; J0456; J0696; J1953; J2060; J2250; J2312; J2470; J2560; J3411; J3475; J7030; J7050